=== PATIENT | male | born 1990 | race Two or more races ===

== ENCOUNTER 2019-05-01 08:37 | Outpatient (CLI) | payer OTHER | END 2019-05-01 16:09 | disposition home or self-care (01) | LOC: LAB 08:37 | DX: Z00.8 Encounter for other general examination (principal) ==

== ENCOUNTER 2019-05-01 10:13 | Outpatient (CLI) | payer OTHER | END 2019-05-01 13:20 | disposition home or self-care (01) | LOC: TOM 10:13 | DX: R10.84 Generalized abdominal pain (principal) ==